=== PATIENT | female | born 1995 | race Two or more races ===

== ENCOUNTER 2024-10-08 04:39 | Inpatient (IN) | payer OTHER ==
[~2024-10-08] VITALS: Ht 154.9 cm; Wt 3.6 kg
[2024-10-08 04:56] VITALS: BP 104/67
[2024-10-08] MEDS ORDERED: RINGERS SOLUTION,LACTATED 1,000 ML IV SCH (05:15)
[2024-10-08] MEDS ORDERED: CEFAZOLIN SODIUM 1,000 MG VIAL IV SCH ×2 (05:15→12:00)
[2024-10-08] MEDS ORDERED: PRENATA CHEWAB1 EACH PO (05:29)
[2024-10-08] MEDS ORDERED: IRON236 MG PO (05:29)
[2024-10-08] MEDS ORDERED: INSULIN SYRING1 EA29 (05:30)
[2024-10-08 06:13] VITALS: BP 103/68; O2SAT 99
[2024-10-08] MEDS ORDERED: CEFAZOLIN SODIUM 1,000 MG VIAL ONE (07:07)
[2024-10-08] MEDS ORDERED: CARBOPROST TROMETHAMINE 250 MCG/ML AMPUL IM ONE (07:09)
[2024-10-08] MEDS ORDERED: OXYTOCIN 10 UNITS/ML VIAL ONE ×2 (07:09→10:25)
[2024-10-08] MEDS ORDERED: ERYTHROMYCIN BASE OPHT 1GM EACH TUBE OP ONE (07:09)
[2024-10-08] MEDS ORDERED: CHLORHEXIDINE GLUCONATE 120 ML BOTTLE TOP ONE (09:10)
[2024-10-08] MEDS ORDERED: KETOROLAC TROMETHAMINE 30 MG VIAL IM SCH (10:00)
[2024-10-08] MEDS ORDERED: OXYTOCIN 20 UNITS/1000ML 0.45% PIGGYBAG IV ONE (10:30)
[2024-10-08] MEDS ORDERED: KETOROLAC TROMETHAMINE 60 MG VIAL IM STA (10:49)
[2024-10-08] MEDS ORDERED: KETOROLAC TROMETHAMINE 30 MG VIAL ONE (11:02)
[2024-10-08] MEDS ORDERED: PROMETHAZINE HCL 25 MG/ML AMPUL IV SCH (12:00)
[2024-10-08] MEDS ORDERED: INSULIN LISPRO 1,000 UNIT/10 ML UNITS SUBCUTANEO ONE (12:15)
[2024-10-08 14:18] VITALS: BP 99/62
[2024-10-08 16:24] VITALS: BP 96/59
[2024-10-08] MEDS ORDERED: ACETAMINOPHEN WITH CODEINE 1 UDTAB TABLET PO PRN (17:45)
[2024-10-08 20:34] VITALS: BP 90/60
[2024-10-09 01:20] VITALS: BP 100/65
[2024-10-09 07:59] LABS: BASO % 0.6 % (0.1-1.2); EOS # 0.05 (0.04-0.54); EOS % 0.4 % (0.7-7.0); HEMATOCRIT 30.2 % (34.1-44.9); HEMOGLOBIN 10.5 g/dL (11.2-15.7); LYMPH # 1.55 (1.18-3.74); LYMPH % 11.6 % (19.3-53.1); MEAN CORPUSCULAR HEMOGLOBIN 30.8 pg (25.6-32.2); MONO # 1.01 (0.24-0.82); MONO % 7.6 % (4.7-12.5); NEUT # 10.49 (1.56-6.13); NEUT % 78.4 % (34.0-71.1); RED BLOOD COUNT 3.41 M/uL (3.93-5.22); RED CELL DISTRIBUTION WIDTH 13.3 % (11.6-14.4)
[2024-10-09 08:00] VITALS: BP 99/61
[2024-10-09 08:55] LABS: PLATELET COUNT 185 K/uL (163-369)
[2024-10-09 09:28] LABS: BASO % 0.4 % (0.1-1.2); EOS # 0.01 (0.04-0.54); EOS % 0.1 % (0.7-7.0); HEMATOCRIT 31.6 % (34.1-44.9); LYMPH # 1.26 (1.18-3.74); MEAN CORPUSCULAR HEMOGLOBIN 30.6 pg (25.6-32.2); MONO % 6.3 % (4.7-12.5); NEUT # 13.25 (1.56-6.13); NEUT % 83.9 % (34.0-71.1); PLATELET COUNT 190 K/uL (163-369); RED BLOOD COUNT 3.59 M/uL (3.93-5.22); RED CELL DISTRIBUTION WIDTH 13.3 % (11.6-14.4)
[2024-10-09] MEDS ORDERED: INSULIN LISPRO 1,000 UNIT/10 ML UNITS SUBCUTANEO ONE ×3 (10:15→20:00)
[2024-10-09 12:09] VITALS: BP 99/64
[2024-10-09] MEDS ORDERED: INSULIN LISPRO 1,000 UNIT/10 ML UNITS SUBCUTANEO NR (15:15)
[2024-10-09 17:00] VITALS: BP 109/71
[2024-10-09 21:00] VITALS: BP 100/65
[2024-10-09] MEDS ORDERED: ACETAMINOPHEN WITH CODEINE 1 UDTAB TABLET PO PRN (22:15)
[2024-10-10] VITALS: BP 114/73
[2024-10-10 08:00] VITALS: BP 101/67
[2024-10-10] MEDS ORDERED: INSULIN LISPRO 1,000 UNIT/10 ML UNITS SUBCUTANEO ONE (09:45)
[2024-10-10 16:00] VITALS: BP 107/68
[2024-10-10 20:00] VITALS: BP 109/71
[2024-10-11 00:22] VITALS: BP 109/68
[2024-10-11 05:44] VITALS: BP 102/65
[2024-10-11 08:41] VITALS: BP 108/69
== END 2024-10-11 17:20 | disposition home or self-care (01) | DRG 788 ==
LOC: LDR 04:39 → O/R 08:08 → OB/GYN 13:17
PROVIDERS: ADMIT Specialist; ATTEND Specialist
PROC: 4A1HXCZ Monitoring of Products of Conception, Cardiac Rate, External Approach (ICD-10-PCS; 2024-10-08)
PROC: 10D00Z1 Extraction of Products of Conception, Low, Open Approach (ICD-10-PCS; principal; 2024-10-08 11:00)
DX: O32.2XX0 Maternal care for transverse and oblique lie, not applicable or unspecified (principal); O69.81X0 Labor and delivery complicated by cord around neck, without compression, not applicable or unspecified; Z3A.38 38 weeks gestation of pregnancy; Z37.0 Single live birth